=== PATIENT | female | born 1930 | race Caucasian/White ===

== ENCOUNTER 2019-02-20 12:06 | Inpatient (IN) | payer MEDICARE, OTHER ==
[~2019-02-20] VITALS: Ht 152.4 cm; Wt 50.3 kg
[~2019-02-20 12:06] MED LIST: ATENOLOL50 MG PO; CHONDROITIN SU250 MG PO; ENALAPRIL-HCTZ1 EACH PO; ESTRADIOL0.5 MG PO; FISH OIL OMEGA1 EAC2 PO; HYDROCHLOROTHIA25 MG PO; HYDROCODON-ACE1 EA10 PO; LEVOTHYROXINE88 MCG PO; LISINOPRIL40 MG PO; METOPROLOL SUC100 MG PO; MULTI VITAMIN1 EACH PO; NARCAN4 MG NAS; OXYCODON-ACETA1 EAC2 PO; POTASSIUM CHLO10 MEQ PO; PREVAGEN; SENNA LAX8.6 MG PO; VITAMIN C250 MG PO; VITAMIN D32000 UNIT PO
[2019-02-20] MEDS ORDERED: HYDROCHLOROTHIA25 MG PO (12:21)
--- NOTE | 2019-02-20 14:10 | NUR ---
PT ARRIVED FROM ED. INTAKE ASSESSMENT AND INTERVENTIONS DONE. PT TRANSFERED TO BED WITH 3PA, SLIDE. 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 PT PLACED ON TELE, SR AT THIS TIME, MURMUR NOTED. PIV WNL, SALINE LOCKED. SWALLOW STUDY COMPLETED. PT HAS NO DIFFICULTY SWALLOWING THIN WATER AND PUDDING. PT FEEDING SELF PUDDING WITH RIGHT HAND (PT NORMALLY LEFT HANDED). MEDICATIONS GIVEN (SEE MAR). FOOD ORDER PLACED FOR PT. NO ADDITIONAL REQUESTS OR COMPLAINTS AT THIS TIME. CALL LIGHT WITHIN REACH. FAMILY AT BEDSIDE.
--- NOTE | 2019-02-20 16:27 | NUR ---
THIS RN CALLED TO ROOM PER EXCELSIOR MACHINE FEEDER REQUEST. PT AND DAUGHTER REPORT PT IS HAVING "UNCONTROLED MUSCLE SPASMS" IN L LEG AND ARM AND "TREMORS." IN HER RIGHT SIDE. INFORMED, NO NEW ORDERS AT THIS TIME. WARM BLANKET PLACED AROUND PTS LEFT LEG PER PT REQUEST. PT REPORTS THE SPASMS ARE PAINFUL. WILL CONTINUE TO MONITOR. CALL LIGHT WITHIN REACH. CURTAIN OPEN FOR EASY VIEWING FROM NURSES STATION.
--- NOTE | 2019-02-20 17:22 | NUR ---
THIS RN TO BEDSIDE FOR ROUNDS WITH MD. PT SHOWS SLIGHLY INCREASED STRENGTH AND NOW REPORTS SOME SENSATION IN LEFT SIDE. NIH SCALE CONTINUES TO SHOWS 13. ASSESSMENT DONE. INVOLUNTARY CONTRACTIONS TO LEFT SIDE CONTINUE. PT REPORTS WARM BLANKET HELPS. NEW WARM BLANKET PROVIDED. PTS FAMILY ARRIVES WITH ITEMS FROM HOME. HOME VITAMINS SENT TO PHARMACY. POLST FORM COPIED AND PUT ON CHART. PT DENIES ADDITIONAL REQUESTS OR COMPLAINTS AT THIS TIME. PT SHOWS SIGNS OF DEPRESSION STATING "I'M JUST WAITING FOR [facility] TO TAKE ME." AND "EVERYONE HAS TO OF SOMETHING." FAMILY AT BEDSIDE. CALL LIGHT WITHIN REACH.
--- NOTE | 2019-02-20 18:29 | NUR ---
PT ADMITTED TODAY FOR STROKE. LEFT SIDED DEFICIT. NIH SCALE OF 13. Q4 NEURO CHECKS. HEAVY 2-3 PA, PIVOT TO COMODE. NOTABLE HTN, MEDICATIONS ORDERED. BEDSIDE SWALLOW EVAL COMPLETED, NO DEFICIT NOTED. PT TOELRATING THIN FLUIDS AND REGULAR DIET. PT/OT/ST PLANNED FOR TOMORROW. EDEL PLACED ON CHART THIS SHIFT. PT VOIDING QUANTITY SUFFICIENT. 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 FAMILY AT BEDSIDE. PT HAS YET TO USE CALL LIGHT.
--- NOTE | 2019-02-20 19:03 | NUR ---
PT CALL LIGHT ON. PT REQUESTS MEDICATION FOR A 11/27 HEADACHE. SEE MAR FOR MEDICATION GIVEN. PT ADJUSTING SELF IN BED. NO ADDITIONAL REQUESTS OR COMPLAINTS AT THIS TIME. CALL LIGHT WITHIN REACH. FAMILY AT BEDSIDE.
--- NOTE | 2019-02-20 19:56 | NUR ---
PATIENT IN BED VISITING WITH HER FAMILY. PATIENT'S LOPEZ PAIN HAS DECREASED 2/10 FROM 4/10.
--- NOTE | 2019-02-20 21:10 | NUR ---
VITALS DONE AND CHARTED. WITH THE HELP OF SURESH LEONARD WE REPOSITIONED PT IN BED. BEDSIDE TABLE AND CALL LIGHT IN REACH.
--- NOTE | 2019-02-20 22:53 | NUR ---
PATIENT IS RESTING QUIETLY SUPINE, RESPIRATIONS ARE REGULAR AND EVEN AT 16. DAUGHTER IS AT BEDSIDE. PATIENT'S EYES ARE CLOSED AND IS IN NO DISTRESS. CALL LIGHT IN REACH.
--- NOTE | 2019-02-21 00:28 | NUR ---
PATIENT RESTING QUIETLY ON HER RIGHT SIDE. RESPIRATIONS REGULAR AND EVEN AT 16. CALL LIGHT IN REACH. EYES CLOSED AND DAUGHTER ASLEEP ON THE COUCH AT BEDSIDE.
--- NOTE | 2019-02-21 02:24 | NUR ---
PATIENT JUST GOT UP TO THE BEDSIDE COMMODE WITH 3 PERSON MAX ASSIST AND THEN BACK TO BED WITH 3PMA AND POSITIONED TO COMFORT. CALL LIGHT IN REACH AND DAUGHTER AT BEDSIDE. LIGHTS TURNED DOWN.
--- NOTE | 2019-02-21 05:12 | NUR ---
PATIENT WAS JUST UP TO THE BED SIDE COMMODE AND VOIDED WITH 3 PERSON ASSIST AND THEN BACK TO BED. LEFT SIDED LIMB DEFICITS REMAIN, BUT SENSATION IS PRESENT AGAIN. VS WERE DONE AND SYSTOLIC PRESSURES PER AUTO CUFF WERE IN THE 180'S TO 190'S. MANUAL PRESSURE IN HER RIGHT ARM WAS 184/80 AND TELE HAS HEART RATE IN THE 80'S. NO C/O PAIN. CALLED AND WAS GIVEN VERBAL ORDER TO GIVE METOPROLOL AND ZESTRIL EARLY NOW, READ BACK ORDER TO CONFIRM. NO OTHER ORDERS GIVEN AT THIS TIME.
--- NOTE | 2019-02-21 06:23 | NUR ---
ORDERS JUST FINALLY CAM THROUGH TO THE [facility] FOR THE EARLY B/P MEDS AND THEY WERE GIVEN. PATIENT'S WATER REFILLED. NO EPISODES OF INCONTINENCE THROUGH THE NIGHT. IV INFUSING WNL AND PATIENT SLEPT FAIRLY WELL EXCEPT FOR WHEN SHE NEEDED TO GET UP TO USE THE COMMODE. LEFT SIDED DEFICITS REMAIN, BUT SESATION HAS RETURNED TO THE LEFT SIDE. NEW ICE WATER GIVEN, DAUGHTER AT BEDSIDE, CALL LIGHT IN PLACE.
--- NOTE | 2019-02-21 06:34 | NUR ---
PATIENT NOW SALINE LOCKED.
--- NOTE | 2019-02-21 07:10 | NUR ---
BEDSIDE HANDOFF REPORT RECEIVED FROM SHIPPING ROOM SUPERVISOR RN. PT SLEEPING, DAUGHTER AT BEDSIDE.
--- NOTE | 2019-02-21 07:20 | NUR ---
PATIENT RESTING IN BED. DAUGHTER IN ROOM. CALL LIGHT WITHIN REACH. NO OTHER NEEDS AT THIS TIME
--- NOTE | 2019-02-21 08:20 | NUR ---
PT RESTING IN BED, ATE SMALL AMOUNT OF BREAKFAST. PT ALERT AND ORIENTED. PT DENIES PAIN. PT ON ROOM AIR, LUNG SOUNDS CLEAR, DENIES SOB. BOWEL TONES ACTIVE, DENIES NAUSEA, TOELRATING REGULAR DIET. PT WITH LEFT FACIAL DROOP AND LEFT EXTREMITY DEFICITS, GROSS MOVEMENT TO LEFT ARM, NO MOVEMENT IN LEFT LEG, SENSATION INTACT. NIH STROKE SCORE 12. PT WITHOUT EDEMA. [place] [facility] [place] DISCUSSED PLAN OF CARE WITH PT AND ANTOINETTE, QUESTIONS ANSWERED. PT DENIES OTHER NEEDS AT THIS TIME.
--- NOTE | 2019-02-21 09:30 | NUR ---
PATIENT RESTING IN BED. DAUGHTER IN ROOM. VITAL SIGNS AND I&O DONE. HIGH BLOOD PRESSURE. RN NOTIFIED. ICE WATER GIVEN. CALL LIGHT WITHIN REACH. NO OTHER NEEDS AT THIS TIME
--- NOTE | 2019-02-21 09:45 | NUR ---
SPOKE AT LENGTH WITH PATIENT AND DAUGHTER NEEL PHAM IN ROOM. PATIENT HAS OBVIOUS FACIAL DROOP AND IS UNABLE TO MOVE L ARM AND ONLY GROSS MOVEMENT OF L LEG. SHE DOES NOT HAVE PROBLEMS WITH SPEAKING, ALTHOUGH SOME SLURRING ON OCCASION. DENIES TROUBLE SWALLOWING, ALTHOUGH SHE UNDERSTANDS SHE NEEDS TO REPORT IF THIS HAPPENS. WE DISCUSSED PROGRESSION OF CARE POST CVA. WE DISCUSSED OPTIONS OF CARE SUCH INPATIENT STROKE REHAB, SNF REHAB, HOME WITH HOME SERVICES. PATIENT STATES HER FIRST CHOICE WOULD BE TO GO HOME. HER DAUGHTER STATES SHE WILL TAKE FMLA OR THAT SHE MIGHT RETIRE EARLY THIS IS PENDING ANYWAY. SHE STATES SHE IS ALREADY GOING TO [facility] TO CHECK ON COMMODE AND WHEELCHAIR. WE DISCUSSED OPTIONS FOR RAMPS. WE DISCUSSED SAFETY AND FOR HER TO BE HERE AND WORK WITH PT/OT AND FOR THEM TO BE SURE SHE CAN DO THIS SAFELY, THAT PERHAPS SOME REHAB FIRST THEN HOME. THEY ARE VERY OPEN TO THIS, TOO. SHE STATES SHE WILL ALSO LOOK INTO BARS IN THE BATHROOM, ETC. WE DISCUSSED THAT IF SHE DOES FULL-TIME CAREGIVING TO HAVE BACK-UP HELP AND COVERAGE FOR BREAKS. QUESTIONS ANSWERED. PATIENT KNOWS SHE WILL BE WORKING WITH PT/OT AND DOES HAVE MORE TESTS SCHEDULED. WILL CONTINUE TO FOLLOW.
--- NOTE | 2019-02-21 10:41 | NUR ---
PT WORKING WITH SPEECH THERAPY. PT BP 210/92, NOTIFIED, GIVEN 20 MG NICARDIPINE PER ORDER.
--- NOTE | 2019-02-21 11:10 | NUR ---
PT COMPLAINT OF LEFT LEG PAIN WITH SPASMS, DISCUSSED WITH DR. QUIGLEY, ORDER TO USE HEAT PACKS AND TYLENOL ORDERED, DOES NOT WANT TO ADD MUSCLE RELAXER IT MAY AFFECT SENSORIUM. PT PROVIDED WITH HEAT PACK AND WARM BLANKET, DISCUSSED PAIN WITH PT. PT DENIES OTHER NEEDS AT THIS TIME.
--- NOTE | 2019-02-21 11:11 | NUR ---
PATIENT RESTING IN BED. BEDBATH DONE. PATIENT USING A CLEAN GOWN.PATIENT COMPLAINS ABOUT PAIN IN HER LEFT LEG. RN NOTIFIED. WARM BLANKET PROVIDED. CALL LIGHT WITHIN REACH. NO OTHER NEEDS AT THIS TIME
--- NOTE | 2019-02-21 12:24 | NUR ---
PT SITTING UP IN BED, EATING SOME SOUP, BUT DIDN'T SEEM TO BE TOO INTERESTED. SON AND DAUGHTER, IN PTS' TERM "WATCHING" HER WITH A SMILE. PT MENTIONED THAT SHE IS READY FOR THE LORD TO TAKE HER TO HER "HEAVENLY" HOME. HER HAD 5 YRS AGO AND SHE MENTIONED THAT SHE MISSES HIM. HAD GOOD VISIT, PT REQUESTED PRAYER. WILL FOLLOW NEEDED
[2019-02-21] MEDS ORDERED: TOPROL XL50 MG PO (13:32)
[2019-02-21] MEDS ORDERED: POTASSIUM CHLO10 ME2 PO (13:33)
--- NOTE | 2019-02-21 13:38 | NUR ---
PT 2PA TO SIT IN CHAIR. PT PROVIDED COKE FROM [facility]. PT DENIES OTHER NEEDS AT THIS TIME.
--- NOTE | 2019-02-21 13:54 | NUR ---
PATIENT SITTING UP IN CHAIR. DAUGHTER AND VISITOR IN ROOM. VITAL SIGNS AND I&O DONE. PATIENT DID NOT VOID DURING THIS PERIOD STILL WHEN SHE WAS ENCOURAGED TO USE THE BASE COMMODE. RN NOTIFIED. LINENS CHANGED. CALL LIGHT WITHIN REACH. NO OTHER NEEDS AT THIS TIME
--- NOTE | 2019-02-21 14:27 | NUR ---
PT COMPLAINT OF HEADACHE, REQUESTING MOTRIN. DISCUSSED WITH DR. QUIGLEY, DR. QUIGLEY TO ORDER.
--- NOTE | 2019-02-21 15:32 | EKG ---
[facility] [address] [place] [address] Signed Normal sinus rhythm Right bundle branch block Left anterior fascicular block Bifascicular block Moderate voltage criteria for LVH, may be normal variant Abnormal ECG When compared with ECG of 21-NOV-2018 11:04, No significant change was found Confirmed by JOSE QUIGLEY MD ([id number]) on 02/21/2019 3:32:10 PM Electronically Signed By: JOSE QUIGLEY MD 02/21/19 1532 PATIENT NAME: KOLE SINHA Electrocardiogram DATE OF : [birth year] PHYSICIAN: JOSE QUIGLEY MD REPORT #: [id number] REPORT IS CONFIDENTIAL AND NOT TO BE RELEASED WITHOUT AUTHORIZATION
--- NOTE | 2019-02-21 17:46 | NUR ---
PT ON ROOM AIR, LUNG SOUNDS CLEAR. PT ALERT/ORIENTED, CONTINUES TO HAVE LEFT SIDE DEFICITS AND SLURRED SPEECH. PT UP WITH 2-3PA TO STAND PIVOT, LEFT LEG NICK. PT SALINE LCOKED. TOELRATING CARDIAC DIET, SMALL APPETITE. NICARDIPINE STARTED TODAY, BP IMPROVED. WORKED WITH PT/OT/.
--- NOTE | 2019-02-21 18:12 | NUR ---
PATIENT SITTING UP IN BED. VITAL SIGNS AND I&O DONE. CALL LIGHT WITHIN REACH. NO OTHER NEEDS AT THIS TIME
--- NOTE | 2019-02-21 19:27 | NUR ---
CHARGE NURSE ROUNDING REPORT:. WARM BLANKET AND HEAT PAD TO LEGS PER DAUGHTERS REQUETS. PT IN BED, CALL LIGHT AT BEDSIDE
--- NOTE | 2019-02-21 20:10 | NUR ---
PATIENT RESTING BED WATCHING TV, DAUGHTER AT BEDSIDE, CALL LIGHT IN REACH, NEW ICE WATER GIVEN.
--- NOTE | 2019-02-21 22:15 | NUR ---
PATIENT 3 PERSON ASSIST TO THE BEDSIDE COMMODE TO VOID 100MLS THEN BACK IN BED AND PULLED UP IN BED. PATIENT GOING TO TRY AND SLEEP NOW.
--- NOTE | 2019-02-21 22:59 | NUR ---
PATIENT RESTING QUIETLY NOW SUPINE, EYES CLOSED, RESPIRATIONS EVEN, CALL LIGHT IN REACH AND DAUGHTER IN ROOM.
--- NOTE | 2019-02-22 01:15 | NUR ---
3 PERSON ASSIST UP TO THE BED SIDE COMMODE AND BACK TO BE WHICH YEILDED A 300ML VOID. PATIENT GOING TO TRY AND GO BACK TO SLEEP. DAUGHTER REMAINS AT BEDSIDE.
--- NOTE | 2019-02-22 03:15 | NUR ---
PATIENT UP TO THE BEDSIDE COMMODE WITH THREE PERSON ASSIST AND THEN BACK TO BE. RESTING QUIETLY NOW WITH DAUGHTER AT BEDSIDE.
--- NOTE | 2019-02-22 05:30 | NUR ---
PATIENT HAS RESTED WELL MOST OF THE NIGHT UNLESS SHE NEEDED TO HAVE A 2 TO 3 PERSON ASSIST TO GET UP TO THE BEDSIDE COMMODE TO VOID. PATIENT HAS FULL SENSATION, JUST CAN'T MOVE HER LEFT LEG OR CONTROL MOVEMENT OF HER LEFT ARM. NO C/O PAIN, JUST FRUSTRATED AND WANTS TO GO HOME. DAUGHTER REMAINS AT BEDSIDE.
--- NOTE | 2019-02-22 06:22 | NUR ---
PATIENT UP TO THE BEDSIDE COMMODE ONCE AGAIN WITH AM MEDS AND THEN BACK IN BED AND REPOSITIONED TO COMFORT. PATIENT GIVEN A WARM BLANKET FOR HER LEFT LEG SHE STARTED TO HAVE A SPASM AFTER BEING PUT BACK TO BED.
--- NOTE | 2019-02-22 07:51 | NUR ---
PATIENT IN BED RESTING WITH EYES CLOSED, DAUGHTER IN ROOM. CALL LIGHT IN REACH. NO FURTHER NEEDS AT THIS TIME.
--- NOTE | 2019-02-22 07:52 | NUR ---
BEDSIDE REPORT RECIEVED FROM CHANELLE PRINCE. PT LYING IN HER BED WITH THE COMPLAINT OF HER LEGS CRAMPING, SHE HAD JUST BEEN MEDICATED FOR THE PAIN AND HAS WARM COMPRESSES IN PLACE AT THIS TIME, WILL CONTINUE TO MONITOR. CALL PONCE WITHIN REACH AND THE PT'S DAUGHTER IS AT THE BED SIDE.
--- NOTE | 2019-02-22 08:55 | NUR ---
PT RESTING IN HER BED AND WHILE SHE WAS EATING BREAKFAST SHE HAD SOME NAUSEA AND WAS MEDICATED ORDERED, SEE EMAR. FAMILY REMAINS AT THE BEDSIDE, CALL PONCE WITHIN REACH.
--- NOTE | 2019-02-22 10:39 | NUR ---
PT AWOKE FROM A NAP AND STATES HER LEFT LEG "SPASM" IS RATED AT A 20/10. PT MEDICATED FOR PAIN ORDERED AND SHE WAS GIVEN A HEATING PACK TO HER LEFT KNEE. SHE STATES THAT THE HEAT HAS BEEN HELPFUL IN THE RESENT PAST. WILL CONTINUE TO MONITOR.
--- NOTE | 2019-02-22 10:40 | NUR ---
PATIENT IN BED, FAMILY IN ROOM. CALL LIGHT IN REACH. NO FURTHER NEEDS AT THIS TIME.
--- NOTE | 2019-02-22 11:18 | NUR ---
Dr Vargas notified of the pt's left knee pain.
--- NOTE | 2019-02-22 11:50 | NUR ---
PT MEDICATED FOR 15/10 LEFT LEG PAIN ORDERED, SEE EMAR. PT HAS NOT VOIDED FOR SEVERAL HOURS. I ASKED THE PT IF SHE COULD GO AND SHE STATES THAT SHE CAN NOT AT THIS TIME. KOLE STATES IT IS VERY NORMAL FOR HER TO GO EXTENDED TIMES WITHOUT VOIDING AND SHE GOES A LARGE AMOUNTS WHEN SHE GOES.
--- NOTE | 2019-02-22 13:39 | NUR ---
PT SLEEPING AT THIS TIME. THE PT'S DAUGHTER REMAINS AT THE BEDSIDE.
--- NOTE | 2019-02-22 14:00 | NUR ---
PATIENT IN BED, DAUGHTER AND RN IN ROOM. LOW OUTPUT, RN NOTIFIED. CANELO ENSURE GIVEN. CALL LIGHT IN REACH. NO FURTHER NEEDS AT THIS TIME.
--- NOTE | 2019-02-22 14:15 | NUR ---
MD AWARE OF DECREASED URINE OUTPUT.
--- NOTE | 2019-02-22 14:16 | NUR ---
PT DENIES ANY PAIN AT THIS TIME AND IS SITTING UP HIGH IN HER BED AND EATING LUNCH AND HAVING AN ENSURE. PT ALERT AND ORIENTED AND HER NEURO CHECK IS UNCHANGED.
--- NOTE | 2019-02-22 15:09 | NUR ---
Pt was sleeping, awakes to voice and denies any pain or problems. Nicardipine held as bp was 101/48. No change in mental status.
--- NOTE | 2019-02-22 16:25 | NUR ---
Pt sleeping at this time.
--- NOTE | 2019-02-22 16:53 | NUR ---
PT REPOSITIONED IN HER BED. PT DENIES ANY PAIN AT THIS TIME.
--- NOTE | 2019-02-22 16:59 | NUR ---
PT CONTINUES TO HAVE SLIGHTLY SLURRED SPEECH AND LEFT SIDE WEAKNESS AND FACIAL DROOP. PT REMAINS ALERT AND ORIENTED. BP 133/47.
--- NOTE | 2019-02-22 17:58 | NUR ---
BOOT PLACED TO PT'S LEFT FOOT ORDERED. PT AND HER DAUGHTER STATE UNDERSTANDING TO WHY IT WAS PLACED.
--- NOTE | 2019-02-22 18:05 | NUR ---
PATIENT IN BED, DAUGHTER IN ROOM. FRESH WATER GIVEN. NO VOID, RN NOTIFIED. CALL LIGHT IN REACH. NO FURTHER NEEDS AT THIS TIME.
--- NOTE | 2019-02-22 19:31 | NUR ---
PATIENT AWAKE IN BED VISITING WITH HER DAUGHTER. PAIN FREE AT THIS TIME. LEFT LEG FOOT DROP BOOT IN PLACE. PATIENT IN GOOD SPIRITS, NO NEEDS AT THIS TIME. CALL LIGHT IN REACH.
--- NOTE | 2019-02-22 20:20 | NUR ---
YARD JACKER ROUNDING NOTE. PT ASSISTED UP TO COMMODE BY KUNAL X2 AND THIS ENGINEERING INSTRUCTOR. PT TOLERATED WELL. PT'S DAUGHTER AT BEDSIDE, PROVIDES AMPLE INSTRUCTION. PT TOLERATED WELL. WHITE BOARD UPDATED. PT'S DAUGHTER AND PT DENY QUESTIONS OR CONCERNS AT THIS TIME.
--- NOTE | 2019-02-22 22:16 | NUR ---
PATIENT COMPLAINING OF 10/10 PAIN IN THE LEFT LEG. BOOT REMOVED, 2.5MG FLEXARIL GIVEN AND 400MG PO IBUPROFEN. DAUGHTER AT BEDSIDE.
--- NOTE | 2019-02-22 23:50 | NUR ---
PATIENT RESTING QUIETLY ON HER RIGHT SIDE, EYES CLOSED, RESPIRATIONS EVEN AND REGULAR, NO SIGNS OF DISTRESS. DAUGHTER ASLEEP ON THE COUCH. CALL LIGHT IN REACH.
--- NOTE | 2019-02-23 01:11 | NUR ---
PATIENT REMAINS RESTING QUIETLY ON HER LEFT SIDE, EYES CLOSED, RESPIRATIONS REGULAR AND EVEN, IN NO DISTRESS, AND DAUGHTER ASLEEP ON THE COUCH.
--- NOTE | 2019-02-23 03:25 | NUR ---
PATIENT RESTING QUIETLY ON HER LEFT SIDE, RESPIRATIONS REGULAR AND EVEN, NO SIGNS OF DISTRESS, CALL LIGHT IN REACH AND DAUGHTER IS ASLEEP ON THE COUCH.
--- NOTE | 2019-02-23 05:19 | NUR ---
PATIENT RESTING QUIETLY ON HER LEFT SIDE, NO MORE COMPLAINTS OF PAIN SINCE THE IBUPROFEN AND FLEXARIL GIVEN AT THE EVENING MED PASS. EYES CLOSED, RESPIRATIONS EVEN AND REGULAR AND DAUGHTER IS ASLEEP ON THE COUCH. CALL LIGHT IN REACH. IV FLUSHES WELL AND IS WNL.
--- NOTE | 2019-02-23 07:38 | NUR ---
REPORT RECEIVED FROM CHANELLE PRINCE. PT SLEEPING AT THIS TIME, HER DAUGHTER REMAINS IN THE ROOM AND DENIES ANY NEW PROBLMES.
--- NOTE | 2019-02-23 08:20 | NUR ---
PT NOW SITTING UP HIGH IN THE BED EATING HER BREAKFAST. SHE STATES THAT THE LEG PAIN IS IMPROVING AND IS NOW A 9/10 AND SHE DENIES THE NEED FOR PAIN MEDICATIONS AT THIS TIME. WILL CONTINUE TO MONITOR.
--- NOTE | 2019-02-23 09:06 | NUR ---
Pt lying in the bed rest quietly, eyes closed, muscles relaxed and a RR of about 16. Three of the pt's family present and they state they belive the pt is comfortable and they denie the need of anything at this time. They were instructed to call if the pt appears uncomfortable or in any distress which they state that they will do.
--- NOTE | 2019-02-23 10:07 | NUR ---
PT SLEEPING AT THIS TIME. THE BOOT IS NOT ON THE MEDICAL TRANSCRIPTION EDITOR STATES THE PT REQUESTED TO NOT HAVE IT ON IT WAS CAUSING MORE LEG PAIN.
--- NOTE | 2019-02-23 10:09 | NUR ---
PATIENT IN BED RESTING. BED BATH GIVEN. NEW GOWN PROVIDED. LINEN CHANGE. FRESH WATER GTIVEN. NEW HEAT PAD GIVEN. BOOT OFF OF FOOT, SAID OKAY IF UNCOMFERTABLE FOR PATIENT. DAUGHTER IN ROOM. CALL LIGHT IN REACH. NO FURTHER NEEDS AT THIS TIME.
--- NOTE | 2019-02-23 11:43 | NUR ---
PT SLEEPING AT THIS TIME, DAUGHTER REMAINS IN THE ROOM.
--- NOTE | 2019-02-23 12:52 | NUR ---
PT SLEEPING AND AWAKES TO VOICE AND QUICKLY FALLS BACK TO SLEEP. IT IS THE PT'S BASELINE TO ONLY VOID A FEW TIMES DAILY, SHE HAS NOT VOIDED SINCE THIS AM, MD AWARE. CALL PONCE IN REACH AND THE PT'S DAUGHTER IN THE ROOM.
--- NOTE | 2019-02-23 13:31 | NUR ---
1335: PT BEING DC'D TO HOME WITH HIS AT THIS TIME.
--- NOTE | 2019-02-23 13:33 | NUR ---
PATIENT IN BED WATCHING TV, DAUGHTER IN ROOM. CALL LIGHT IN REACH. NO FURTHER NEEDS AT THIS TIME.
--- NOTE | 2019-02-23 14:59 | NUR ---
NO CHANGE NOTED ON THE LEFT SIDE WITH THE NEURO CHECK. PT DENIES ANY PAIN AT THIS TIME.
--- NOTE | 2019-02-23 15:25 | NUR ---
PT HAS NOT VOIDED SINCE THIS AM, PT BLADDER SCANNED WHICH STATES 302ML. DR QUIGLEY NOTIFIED AND NEW ORDERS RECEIVED.
--- NOTE | 2019-02-23 16:17 | NUR ---
PT HELPED TO THE COMMODE AND VOIDED 300 CC OF DARK YELLOW URINE AND PT HELPED BACK TO BED. COCCYX INTACT WITH NO SIGNS OF BREAKDOWN. IV CONTINUES INFUSING AT 125 ML/HR AT THIS TIME.
--- NOTE | 2019-02-23 16:51 | NUR ---
PT STATES HER LEFT LEG IS HAVING PAIN RATED AT AN 8, SHE WAS MEDICATED FOR THE PAIN AND GIVEN AND HEAT PAD. SEE EMAR.
--- NOTE | 2019-02-23 17:12 | NUR ---
Pt's neuro checks remain unchanged all shift. Pt had left leg pain which was recently treated with flexril. Her urine output was scant today and she is now getting one liter of LR at 125 an hour.
--- NOTE | 2019-02-23 18:00 | NUR ---
Pt denies any pain at this time.
--- NOTE | 2019-02-23 18:41 | NUR ---
PATIENT IN BED TALKING TO VISITOR. CALL LIGHT IN REACH. NO FURTHER NEEDS AT THIS TIME.
--- NOTE | 2019-02-23 19:45 | NUR ---
2-3 PA PATIENT USED THE BEDSIDE COMMODE AND BACK TO BED.
--- NOTE | 2019-02-23 19:53 | NUR ---
DRILL PRESS TENDER ROUNDING NOTE. PT RESTING IN BED WITH EYES CLOSED, VISITOR AT BEDSIDE. PT WAKES EASILY WHEN SUPPORT DBA ENTERS THE ROOM. PT DENIES QUESTIONS OR CONCERNS AT THIS TIME. WHITE BOARD UPDATED. CALL LIGHT WITHIN REACH.
--- NOTE | 2019-02-23 20:00 | NUR ---
3 PA HELPED PATIENT USED THE BEDSIDE COMMODE AND BACK TO BED.
--- NOTE | 2019-02-23 20:27 | NUR ---
up to bs, 2 pa, voided, back to bed. L sided deficit
--- NOTE | 2019-02-23 22:06 | NUR ---
UP TO BSC WITH 2 PEOPLE ASSIST. L SIDED DEFICIT STILL PRESENT. VOIDED 300CC YELLOW URINE. BACK TOBED. PT STILL IMPULSIVE. IVF INFUSING, HOB ELEVATED, ON ROOM AIR, NO C/O PAIN OR SOB.
--- NOTE | 2019-02-23 22:10 | NUR ---
3 PA PATIENT USE THE BEDSIDE COMMODE. PATIENT IS BACK IN BED. DAUGHTER IS IN THE ROOM.
--- NOTE | 2019-02-23 23:23 | NUR ---
MEDICATED WITH TYLENOL C/O RESTLESS LEGS. WARM PAD AND WARM BLANKET TO LEGS GIVEN. REPOSITIONED IN BED. FAMILY AT BEDSIDE.
--- NOTE | 2019-02-23 23:40 | NUR ---
CALMR, NO C/O OR FACIAL S/SX PAIN AT THIS TIME, LAYING L SIDE, WARM PAD BETWEEN LEGS. HOB ELEVATED. CALL LIGHT AT BEDSIDE. FAMILY ROOMING IN
--- NOTE | 2019-02-24 01:13 | NUR ---
pt up to bsc. voided, back to bed. 2PA. L sided deficit. pt impulsive, call light at bedside
--- NOTE | 2019-02-24 02:37 | NUR ---
3 PA USED THE BEDSIDE COMMODE AND BACK TO BED. DAUGHTER IN THE ROOM.
--- NOTE | 2019-02-24 04:37 | NUR ---
PT MEDICATED WITH FLEXERIL 2.5MG PO C/O RESTLESSS LEG, MUSCLE CRAMPING L LEG. WARM PAD APPLIED. REPOSITIONED UP IN BED. HELPS WITH TURNING
--- NOTE | 2019-02-24 06:25 | NUR ---
3 PA TO THE BEDSIDE COMMODE. PATIENT IS BACK IN BED. DAUGTHER IN THE ROOM.
--- NOTE | 2019-02-24 07:24 | NUR ---
FUR DRESSING SUPERVISOR IN ROOM PERFORMING ECHO. PT DAUGHTER PRESENT IN ROOM DURING PROCEDURE.
--- NOTE | 2019-02-24 08:31 | NUR ---
PT RESTING IN BED ON LEFT SIDE, CRIES OUT OCCASIONALLY, REPORTING 10/10 LEFT LEG PAIN DUE TO SPASMS. MEDICATED WITH PRN IBUPROFEN AND SCHEDULED AM MEDS. DAUGHTER ASSISTING PT TO EAT BITES OF BREAKFAST, PT SHOWS NO SIGNS OF SWALLOWING DIFFICULTY. NOTED LEFT FACIAL DROOP AND ONLY GROSS MOVEMENT OF LEFT ARM AND LEG, NO SHIPYARD SUPERVISOR OF LEFT HAND. ENCOURAGED ELEVATION OF LEFT ARM. PT ALERT AND ORIENTED. DAUGHTER AT BEDSIDE. CALL LIGHT WITHIN REACH.
--- NOTE | 2019-02-24 09:15 | NUR ---
SPOKE AT LENGTH WITH PATIENT AND DAUGHTER REGARDING DISCHARGE. PATIENT IS ADAMENT THAT SHE DOES NOT WANT TO DO ANY REHAB IN A FACILITY. SHE WANTS TO GO HOME. SHE IS VERY AGREEABLE TO HOME HEALTH REHAB AND HELP. DAUGHTER NEEL WILL BE STAYING FULL-TIME WITH PATIENT AND SHE HAS HELP WITH HER DAUGHTER, AND HER BROTHER WHO ALL LIVE NEARBY. SHE HAS BEEN VERY PRO-ACTIVE WITH TALKING AND WORKING WITH PT,OT HERE AT HOSPITAL AND FEELS SHE UNDERSTANDS PATIENTS ABILITIES AND NEEDS. SHE UNDERSTANDS THAT PATIENT IS A TWO-PERSON ASSIST. WE DISCUSSED PATIENT NEEDS TO BE HOME SAFELY. THUS FAR SHE HAS A RAMP IN PLACE THEY BORROWED FROM A NEIGHBOR AND SHE PLANS ON GETTING ONE PERMANENTLY BUILT. SHE IS GOING TO [employer] TODAY TO LOOK FOR WHEELCHAIR, COMMODE, GAIT BELT AND POSSIBLY A LIFT. SHE IS VERY AWARE ON USING THESE ITEMS SHE HAS A BROTHER WHO AT ONE TIME WAS BEDRIDDEN AFTER AN ILLNESS AND SHE AND OTHER FAMILY MEMBERS HELPED WITH THIS. SHE WILL WORK WITH HOME HEALTH THEY SEE PATIENT AT HOME ON ANY OTHER NEEDS. SHE STATES [facility] WILL PURCH[facility]. SHE UNDERSTANDS SOME ITEMS, SUCH WHEELCHAIR CAN BE PAID BY MEDICARE, BUT SHE WANTS TO BORROW THIS FOR NOW THROUGH [employer]. THEY ALREADY HAVE FWW AT HOME. DISCUSSED AT LENGTH WITH PATIENT HER FEELINGS ABOUT WANTING TO BE HOME AND SHE STATED SHE "JUST WANTS TO GIVE UP". 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 DISCUSSED AT LENGTH PALLATIVE TREATMENT, THAT IMPROVEMENT CAN TAKE MONTHS, ETC. SHE AND DAUGHTER STATE UNDERSTANDING. THEY ARE BOTH VERY INTERESTED IN [facility] PROGRAM. DISCUSSED THAT I WILL HAVE [facility] MAKE CONTACT WITH THEM AND SHE CAN HELP THEM WITH ANY RESOURCES THEY MAY NEED ONCE HOME. THEY BOTH AGREE TO THIS. PATIENT WAS TEARY ON OCCASION, BUT STATES "I JUST KNOW I'LL DO BETTER AT HOME, I HATE SLEEPING IN OTHER BEDS. I NEED TO BE AROUND MY LITTLE DOG". WE DISCUSSED SAFETY FIRST, THAT FALLS ARE A REAL THREAT TO HER REMAINING AT HOME. THEY BOTH UNDERSTAND AND WANT TO PRECEED WITH DISCHARGE. DAUGHTER IS GOING TO [place] THIS MORNING. WE DISCUSSED THAT IF THEY DON'T HAVE EVERYTHING IN PLACE FOR LATER TODAY, MAYBE WE COULD GET HER HOME TOMORROW. PATIENT AGREES, STATES "PLEASE TRY TO MAKE IT TODAY". WE DISCUSSED OPTIONS FOR HOME HEALTH, THEY WANT TO USE [facility] FROM [place]. WILL CONTINUE TO FOLLOW.
--- NOTE | 2019-02-24 10:13 | NUR ---
PATIENT GOT UP TO THE CHAIR. SHE ATE BREAKFAST. WATER REFRESHED. CALL LIGHT IN REACH. SHE WENT TO THE COMMODE THEN GOT BACK INTO THE BAD. NO FURTHER NEEDS AT THIS TIME. WARM WASHCLOTH OFFERED.
--- NOTE | 2019-02-24 10:49 | NUR ---
PT WAS UP TO CHAIR FOR APPROX 30 MIN, REPORTED THAT SHE WAS MORE COMFORTABLE IN THE CHAIR BUT THAT SHE WAS TIRED AND WANTED TO GO BACK TO BED. 2 PERSON FULL ASSIST TRANSFER TO HOSPITAL BED. LEFT LEG SPASMS INCREASED AFTER TRANSFER TO BED. DAUGHTER AT BEDSIDE. CALL LIGHT WITHIN REACH.
--- NOTE | 2019-02-24 11:15 | NUR ---
CHW MET WITH PATIENT AND PATIENT DAUGHTER NEEL. NEEL STATED THEY ARE WORKING ON GETTING EVERYTHING ALL SET UP IN THE HOME FOR HER MOM TO COME BACK HOME. PATIENT IS EAGER TO LEAVE THE HOSPITAL AND JUST WANTS TO GO HOME. DAUGHTER IS AWARE OF THE COMMUNITY RESOURCES. CHW DID BRING UP [facility] IN REGARDS TO SERVICES/HELP IN THE FUTURE FOR CAREGIVING RELIEF. PATIENT DAUGHTER HAS CHW CONTACT CARD FOR FURTHER HELP IF NEEDED. CHW STATED A HOME VISIT CAN BE MADE ONCE PATIENT IS HOME AND IS SETTLED IN FOR A VISIT. PATIENT WILL BE RECEIVING HOME HEALTH SERVICES AFTER DISCHARGE AND FAMILY IS AWARE.
[2019-02-24] MEDS ORDERED: ATORVASTATIN CA20 MG PO (13:06)
[2019-02-24] MEDS ORDERED: AMLODIPINE BESYL5 MG PO (13:06)
[2019-02-24] MEDS ORDERED: METOPROLOL SUC100 MG PO (13:06)
[2019-02-24] MEDS ORDERED: ASPIRIN EC81 MG PO (13:06)
[2019-02-24] MEDS ORDERED: CYCLOBENZAPRINE5 MG PO (13:06)
--- NOTE | 2019-02-24 13:16 | NUR ---
NOTED PT IS SITTING ON SIDE OF BED, OT IN WORKING. DAUGHTER CAME OUT AND SAID PT HAS IMPROVED, AND SEEMED VERY POSITIVE. EXTENDED A BLESSING,WILL FOLLOW NEEDED
--- NOTE | 2019-02-24 13:30 | NUR ---
PT FULL 2 PERSON LIFT TRANSFER TO SHOWER CHAIR FROM [facility]. PT VOIDING WITHOUT DIFFICULTY. NO RECIEVING SHOWER FROM [facility]. PT MEDICATED WITH PRN FLEXARIL FOR LEFT LEG MUSCLE SPASMS.
--- NOTE | 2019-02-24 14:41 | NUR ---
SPOKE WITH PATIENT AND DAUGHTER IN ROOM. NEEL STATES SHE HAS THE RAMP IN PLACE, HAS A WHEELCHAIR, COMMODE, GATE BELT AT HOME AND THEY HAVE HELP IN GETTING PATIENT HOME. PATIENT VERY CHEERFUL, STATES "I CAN'T WAIT TO GET HOME". DISCUSSED HOME HEALTH AND CHW PLAN. NEEL STATES SHE HAS [facility] PHONE NUMBER, AND SHE MET CHW JITENDRA AND HAS HER CARD. THEY BOTH STATE THEY FEEL THEY HAVE SUPPORT TO GO HOME. MY CONTACT CARD GIVEN ALSO. QUESTIONS ANSWERED.
--- NOTE | 2019-02-24 15:00 | NUR ---
PT ASSISTED TO GET DRESSED IN PERSONAL CLOTHING AFTER SHOWER. PT AWAITING DISCHARGE.
--- NOTE | 2019-02-24 16:22 | NUR ---
FAXED ORDER, CLINICALS TO [facility] [phone]. FAX CONFIRMATION RECEIVED. SPOKE WITH KELSEY FROM OFFICE, SHE WILL PROCESS.
--- NOTE | 2019-02-25 11:32 | NUR ---
RECEIVED MESSAGE FROM KELSEY AT [facility] AND SHE STATED THEY DID NOT RECEIVE PAGES 1-27 OF THE FAX COULD WE REFAX, KIRSTIN REFAXED THESE PAGES. I SPOKE WITH KELSEY AND SHE STATED THEY RECEIVED THEM NOW.
== END 2019-02-24 15:30 | disposition home health service (06) | DRG 65 ==
LOC: ED 12:06 → MS 14:05
PROVIDERS: ADMIT Student in an Organized Health Care Education/Training Program
DX: I63.9 Cerebral infarction, unspecified (principal); G81.94 Hemiplegia, unspecified affecting left nondominant side; R13.12 Dysphagia, oropharyngeal phase; I10 Essential (primary) hypertension; R40.2362 Coma scale, best motor response, obeys commands, at arrival to emergency department; R40.2142 Coma scale, eyes open, spontaneous, at arrival to emergency department; K59.00 Constipation, unspecified; M62.838 Other muscle spasm; R40.2252 Coma scale, best verbal response, oriented, at arrival to emergency department; R29.713 NIHSS score 13; R73.03 Prediabetes; E03.9 Hypothyroidism, unspecified; H35.30 Unspecified macular degeneration; Z66 Do not resuscitate; Z79.899 Other long term (current) drug therapy
CPT/HCPCS: 36415; 51798; 70450; 71045; 80053; 80061; 83036; 84484; 85025; 85610; 85730; 92610; 93005; 93010; 93306; 93880; 96374; 97110; 97112; 97162; 97166; 97530; 97535; 99285-25; J1650; J2405; J7120

== ENCOUNTER 2020-07-19 17:00 | Emergency (ER) | payer MEDICARE, OTHER ==
[~2020-07-19] VITALS: Ht 152.4 cm; Wt 59.4 kg
[~2020-07-19 17:00] MED LIST changes: +AMLODIPINE BESYL5 MG PO; +ASPIRIN EC81 MG PO; +ATORVASTATIN CA20 MG PO; +CIPRO500 MG PO; +CYCLOBENZAPRINE5 MG PO; +POTASSIUM CHLO10 ME2 PO; +TOPROL XL50 MG PO
--- OUTSIDE RECORDS SUMMARY | 2020-07-19 17:04 | XMS ---
PreManage Notification: KOLE SINHA [employer]ician Events No recent Security Events currently on file CRITERIA MET - [facility] - Has Care Guidelines CARE PROVIDERS ALISON WARNER Internal Medicine: Pulmonary Disease 02/25/2019-Current PHONE: Unknown Tory has no Care Guidelines for this patient. Care History Medical/Surgical 02/25/2019 [facility] - Patient is currently established with [facility]. If patient is seen in the ED during business hours. Please contact CHWs at [facility]. Care Recommendation: This patient has had 5 or more Emergency Department visits in the last 12 months.\T\nbsp; Patient requires education on the scope and purpose of the ED as an acute care provider not a Primary Care Provider and should not be utilized for chronic conditions.\T\nbsp; These are guidelines and the provider should exercise clinical judgment when providing care. E.D. VISIT COUNT (12 MO.) 1 [facility] TOTAL 1 NOTE: Visits indicate total known visits. ED/UCC VISIT TRACKING (12 MO.) 07/19/2020 17:01 [facility] OR TYPE: Emergency COMPLAINT: - LOC INPATIENT VISIT TRACKING (12 MO.) No inpatient visits to display in this time frame [id number]
[2020-07-19] MEDS ORDERED: GABAPENTIN300 MG PO (17:20)
[2020-07-19] MEDS ORDERED: TIZANIDINE HCL2 MG PO (17:20)
--- NOTE | 2020-07-20 13:54 | EKG ---
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
== END 2020-07-19 17:57 | disposition left against medical advice (07) ==
LOC: ED 17:00
DX: Z53.21 Procedure and treatment not carried out due to patient leaving prior to being seen by health care provider (principal)
CPT/HCPCS: 80053; 83735; 84484; 85025; 93005; 93010